=== PATIENT | male | born 1980 | race Caucasian/White ===

== ENCOUNTER 2025-03-06 18:38 | Emergency (ER) | payer OTHER, SELFPAY ==
[2025-03-06 18:39] VITALS: BP 139/112
[2025-03-06] MEDS: DELTASONE 50 MG PO (18:51)
[2025-03-06] MEDS: BENADRYL 50 MG PO (18:52)
[2025-03-06 20:19] VITALS: BP 134/94
--- NOTE | 2025-03-06 20:29 | ED.GENMED ---
History of Present Illness
<Claudette Vilchis MD - Last Filed: 03/06/25 20:35>
General
Chief Complaint: Allergic Reaction
Source: patient
Time Seen by Provider: 03/06/25 20:09
History of Present Illness
History of Present Illness:
44-year-old male who states that 2 weeks ago he suffered a bee sting x 2 to the right upper extremity while playing golf. He saw his doctor and was started on a Medrol Dosepak x 6 days. Then, approximately 6 days after he again suffered a bee
sting, and his Medrol Dosepak was restarted. He has 1 day left in this. At about 615 tonight he was in the yard and thinks that he accidentally came up on a bee nest. He describes multiple stings on his back. When he noticed this he started to
run states he was running up a hill quickly and thinks that he 'pulled' his left calf. He went into the house, took a short off and noticed that it became out. He says right now he feels 'normal'. He denies associated nausea, vomiting, lip or
tongue swelling, change in voice, throat tightness, trouble swallowing, headache, chest pain, shortness of breath, abdominal pain. He does note areas where he suffered bee stings that are slightly swollen but not itchy. He was feeling slightly
dizzy earlier but no longer. Patient denies other complaints.
Past History
<Claudette Vilchis MD - Last Filed: 03/06/25 20:35>
Past History
ED Past Medical History: HTN
ED Past Surgical History: Orthopedic and Urological
Social History
Tobacco: Non-smoker
Alcohol: None
Drug: Marijuana
Personal:
Living: with family
Phy Exam
<Claudette Vilchis MD - Last Filed: 03/06/25 20:35>
Physical Exam
Physical Exam:
GENERAL: Alert , in no apparent distress
EYE: pupils equal and reactive
NECK: Supple, no significant adenopathy.
ENT: o/p clr, mmm, no trismus, no drool, voice clear, no lip or tongue swelling.
CARDIAC: Regular rate and rhythm .
LUNGS: Clear breath sounds bilaterally, no acute respiratory distress, no wheezes/rales/rhonchi
ABDOMEN: Soft, without focal tenderness, no r/g, no cvat
NEUROLOGICAL: Alert and oriented, no focal neuro deficits
SKIN: Warm and dry, skin intact. There are several areas of suspected bee stings noted at right buttock and back area
MUSCULOSKELETAL: No edema, well perfused. Normal Dowell's test, no tenderness to palpation noted at the Achilles insertion. Patient has tenderness palpation of the left calf. He is able to stand bear weight and walk, no weakness noted, but he
does note discomfort with these motions.
PSYCH: Normal and appropriate interaction.
Course
<Claudette Vilchis MD - Last Filed: 03/06/25 20:35>
Orders/Labs/Results
Orders:
Orders
03/06/25 18:48
Diphenhydramine [Benadryl] 50 mg .ROUTE .STK-MED ONE
Prednisone [Deltasone] 50 mg .ROUTE .STK-MED ONE
03/06/25 18:51
Diphenhydramine [Benadryl] 50 mg PO NOW STA
Prednisone [Deltasone] 50 mg PO NOW STA
03/06/25 21:20
Famotidine [Pepcid] 20 mg IV NOW STA
Vital Signs
Initial and Last Documented VS:
Initial Vital Signs
Temp Pulse Resp BP Pulse Ox
98.4 F 101 18 139/112 98
03/06/25 18:39 03/06/25 18:39 03/06/25 18:39 03/06/25 18:39 03/06/25 18:39
Last Documented Vital Signs
Temp Pulse Resp BP Pulse Ox
98.4 F 70 11 134/94 99
03/06/25 18:39 03/06/25 20:20 03/06/25 20:20 03/06/25 20:19 03/06/25 20:33
<Xavi Richey DO - Last Filed: 03/06/25 21:24>
Orders/Labs/Results
Orders:
Orders
03/06/25 18:48
Diphenhydramine [Benadryl] 50 mg .ROUTE .STK-MED ONE
Prednisone [Deltasone] 50 mg .ROUTE .STK-MED ONE
03/06/25 18:51
Diphenhydramine [Benadryl] 50 mg PO NOW STA
Prednisone [Deltasone] 50 mg PO NOW STA
03/06/25 21:20
Famotidine [Pepcid] 20 mg IV NOW STA
Vital Signs
Initial and Last Documented VS:
Initial Vital Signs
Temp Pulse Resp BP Pulse Ox
98.4 F 101 18 139/112 98
03/06/25 18:39 03/06/25 18:39 03/06/25 18:39 03/06/25 18:39 03/06/25 18:39
Last Documented Vital Signs
Temp Pulse Resp BP Pulse Ox
98.4 F 70 11 134/94 99
03/06/25 18:39 03/06/25 20:20 03/06/25 20:20 03/06/25 20:19 03/06/25 20:33
<Claudette Vilchis MD - Last Filed: 03/06/25 20:35>
*Pulse Oximetry
SaO2: 99
Oxygen Mode of Delivery: Room air
<Xavi Richey DO - Last Filed: 03/06/25 21:24>
*Pulse Oximetry
Patient hypoxic: no
*Critical Care Note
Total Time (30-74mins, 75-104mins- exclusive of procedures): Not Applicable
<Claudette Vilchis MD - Last Filed: 03/06/25 20:35>
Update Note
Update Note:
Patient presents to the Emergency Department with ___multiple bee stings
Number and Complexity of Problems Addressed at the Encounter
� Chronic conditions affecting care:
� Acute Exacerbation and/or Progression of Chronic Illness:
� Differential Diagnosis includes: But not limited to allergic reaction, hives, anaphylaxis, Achilles tear, calf strain, etc. etc.
Amount and/or Complexity of Data to be Reviewed and Analyzed
� I performed an independent evaluation of and my interpretation is:
EKG:
CT:
Xrays:
Laboratory Studies:
Other:
� Review of other/old records reveals:
� Clinical information was obtained by an independent historian:
� Prescriptions/Medications Considered but not given:
� Further testing considered but not performed:
Risk of Complications and/or Morbidity or Mortality of Patient Management
� Social determinants of health affecting care:
� Discussion with other providers (PCP, Hospitalists, Consultants, etc):
� Escalation of care including admission/observation vs risk of discharge considered: Patient advised regarding expectations for suspected calf strain, and importance of close follow-up regarding. Weighing risk and benefits and
given that patient is still on steroids I do not recommend that patient restart another course of steroids. With the exception of skin findings he does not have any allergic signs or symptoms and event happened at least 2 hours ago. We will
observe patient for another hour and if he remains stable and without new symptoms he will be stable for discharge. Described importance of carrying an EpiPen with him and reasons to use this, taking antihistamines at home, and reasons return to
the ER.
<Xavi Richey DO - Last Filed: 03/06/25 21:24>
Update Note
Update Note:
Patient presents to the Emergency Department with ___multiple bee stings
Number and Complexity of Problems Addressed at the Encounter
� Chronic conditions affecting care:
� Acute Exacerbation and/or Progression of Chronic Illness:
� Differential Diagnosis includes: But not limited to allergic reaction, hives, anaphylaxis, Achilles tear, calf strain, etc. etc.
Amount and/or Complexity of Data to be Reviewed and Analyzed
� I performed an independent evaluation of and my interpretation is:
EKG:
CT:
Xrays:
Laboratory Studies:
Other:
� Review of other/old records reveals:
� Clinical information was obtained by an independent historian:
� Prescriptions/Medications Considered but not given:
� Further testing considered but not performed:
Risk of Complications and/or Morbidity or Mortality of Patient Management
� Social determinants of health affecting care:
� Discussion with other providers (PCP, Hospitalists, Consultants, etc):
� Escalation of care including admission/observation vs risk of discharge considered: Patient advised regarding expectations for suspected calf strain, and importance of close follow-up regarding. Weighing risk and benefits and
given that patient is still on steroids I do not recommend that patient restart another course of steroids. With the exception of skin findings he does not have any allergic signs or symptoms and event happened at least 2 hours ago. We will
observe patient for another hour and if he remains stable and without new symptoms he will be stable for discharge. Described importance of carrying an EpiPen with him and reasons to use this, taking antihistamines at home, and reasons return to
the ER.
Patient received in turnover from Dr. Vilchis. Patient states he feels well. Will give patient Pepcid as H2 roseline and discharge home. Do not suspect anaphylaxis. Patient is currently on a course of steroids. EpiPen prescription sent. Follow-up
with primary care. Return precautions given.
ED Attending Note
<Claudette A. Vilchis, MD - Last Filed: 03/06/25 20:35>
-
Portions of this chart may have been created with voice recognition software.� Occasional wrong word or��sound alike� substitutions may have occurred due to the inherent limitations of voice recognition software.
Discharge Plan
Departure
Patient Disposition: Home (Routine Discharge)
Date of Disposition: 03/06/25
Time of Disposition: 21:22
Patient with high blood pressure during this ER visit?: Yes
Condition: Good
Discharge Problem:
Accidental bee sting
Instructions: Lower Extremity Muscle Strain, Insect bites and stings - ED (DC), BLOOD PRESSURE
Prescriptions:
New
epinephrine [EpiPen] 0.3 mg/0.3 mL auto-injector
0.3 mg IM .STAT PRN (Reason: anaphylaxis) Qty: 2 0RF
Activity Restrictions/Additional Instructions:
PLEASE SEE YOUR PRIMARY CARE DOCTOR PROMPTLY FOR CLOSE FOLLOW-UP. TAKE ANTIHISTAMINES SUCH CLARITIN RECOMMENDED AND NEEDED. IF YOU DEVELOP LIP OR TONGUE SWELLING, CHANGE IN VOICE, TROUBLE SWALLOWING, THROAT TIGHTNESS, SHORTNESS OF BREATH,
GET WORSE, OR OTHER WORRISOME SIGNS, PLEASE RETURN TO THE ER IMMEDIATELY!
Interventions
Interventions:
*Risk Screen - Suicide Last Done: 03/06/25 20:08
*General Assessment Last Done: 03/06/25 20:08
*Neglect/Abuse Screening Last Done: 03/06/25 20:08
*ED- Fall Risk Assessment Last Done: 03/06/25 20:08
*ED COVID-19 Vaccine History Last Done: 03/06/25 20:08
ED- Cardiac Assessment Last Done: 03/06/25 20:08
ED- Pulmonary Assessment Last Done: 03/06/25 20:08
ED-Skin Assessment Last Done: 03/06/25 20:08
Discharge Date and Time
Print Language: MICRONESIAN
[2025-03-06 21:00] VITALS: BP 116/78
[2025-03-06] MEDS: PEPCID 20 MG IV (21:31)
== END 2025-03-06 21:35 | disposition home or self-care (01) ==
LOC: EMR 18:38
PROVIDERS: EMERGENCY PHYSICIAN Emergency Medicine; FAMILY PHYSICIAN Physician Assistant Medical
DX: T63.441A Toxic effect of venom of bees, accidental (unintentional), initial encounter (principal); I10 Essential (primary) hypertension
CPT/HCPCS: 99284; 96374

== ENCOUNTER 2025-05-11 06:22 | Day surgery (SDC) | payer OTHER, SELFPAY | END 2025-05-11 12:09 | disposition home or self-care (01) | LOC: GI 06:22 | PROVIDERS: ATTENDING PHYSICIAN Internal Medicine Gastroenterology | DX: Z12.11 Encounter for screening for malignant neoplasm of colon (principal); K64.8 Other hemorrhoids | CPT/HCPCS: G0121 ==